=== PATIENT | female | born 1970 | race Caucasian/White ===

== ENCOUNTER 2021-06-30 14:53 | Emergency (ER) | payer SELFPAY ==
[2021-06-30 15:46] LABS: #Basophils 0.1 thou/uL (0.0-0.2); #Eosinphils 0.1 thou/uL (0.0-0.7); #Lymphocytes 3.4 thou/uL (1.20-3.40); #Monocytes 0.6 thou/uL (0.11-0.59); #Neutrophils 4.5 thou/uL (1.40-6.50); %Basophils 0.6 % (0.0-1.0); %Eosinophils 1.5 % (0.0-10.0); %Monocytes 7.2 % (0.0-10.0); %Neutrophils 51.7 % (42.0-75.0); Hemoglobin 15.1 g/dL (12.0-16.0); Mean Corpuscular HGB CONC 30.3 g/dL (32.0-36.0); Mean Corpuscular Hemoglobin 30.4 pg (27.0-31.0); Mean Platelet Volume 6.8 fL (7.4-10.4); Platelet Count 229 thou/uL (130-400); Red Blood Cell (RBC) Count 4.96 mill/uL (4.20-5.40); White Blood Cell (WBC) Count 8.7 thou/uL (4.8-10.8)
[2021-06-30 16:02] LABS: ALT (SGPT) 13 U/L (8-55); AST (SGOT) 12 U/L (5-34); Albumin 3.7 g/dL (3.5-5.0); Alkaline Phosphatase 72 U/L (40-110); Anion Gap 10 mmol/L (10-20); BUN (Urea Nitrogen) 8 mg/dL (9.8-20.1); Bilirubin, Total 0.3 mg/dL (0.2-1.2); Calc. Creatinine Clearance 0 mL/min (70-130); Carbon Dioxide 31 mmol/L (22-29); Chloride 109 mmol/L (98-107); Globulin 3.2 g/dL (2.4-3.5); Glucose 84 mg/dL (70-105); Potassium 4.4 mmol/L (3.5-5.1); Protein, Total 6.9 g/dL (6.0-8.3); Sodium 146 mmol/L (136-145)
== END 2021-06-30 17:11 | disposition home or self-care (01) ==
LOC: ERS 14:53
DX: J45.901 Unspecified asthma with (acute) exacerbation (principal); H66.91 Otitis media, unspecified, right ear; F17.210 Nicotine dependence, cigarettes, uncomplicated
CPT/HCPCS: 36415; 71045; 80053; 84484; 85025; 93005

== ENCOUNTER 2022-01-14 17:05 | Emergency (ER) | payer SELFPAY ==
[2022-01-14] MEDS ORDERED: HYDROcodone/Acetaminophen 5/325 mg Tablet ONE (18:42)
[2022-01-14] MEDS ORDERED: Ketorolac Tromethamine 30 MG/ML VIAL ONE (18:42)
[2022-01-14] MEDS ORDERED: predniSONE 20 MG TAB ONE (18:42)
== END 2022-01-14 19:00 | disposition home or self-care (01) ==
LOC: ERS 17:05
DX: M85.841 Other specified disorders of bone density and structure, right hand (principal)
CPT/HCPCS: 96372; J1885; J7512

== ENCOUNTER 2022-03-13 11:00 | Emergency (ER) | payer SELFPAY ==
[2022-03-13 11:33] LABS: #Eosinphils 0.1 thou/uL (0.0-0.7); #Lymphocytes 2.8 thou/uL (1.20-3.40); #Monocytes 0.8 thou/uL (0.11-0.59); #Neutrophils 5.2 thou/uL (1.40-6.50); %Basophils 0.3 % (0.0-1.0); %Eosinophils 1.1 % (0.0-10.0); %Lymphocytes 31.1 % (21.0-51.0); %Neutrophils 58.5 % (42.0-75.0); Hemoglobin 14.9 g/dL (12.0-16.0); Mean Corpuscular HGB CONC 30.4 g/dL (32.0-36.0); Mean Corpuscular Hemoglobin 31.7 pg (27.0-31.0); Mean Platelet Volume 6.8 fL (7.4-10.4); Platelet Count 218 thou/uL (130-400); RBC Distribution Width 12.5 % (11.5-14.5); Red Blood Cell (RBC) Count 4.68 mill/uL (4.20-5.40); White Blood Cell (WBC) Count 8.9 thou/uL (4.8-10.8)
[2022-03-13 11:51] LABS: ALT (SGPT) 48 U/L (8-55); AST (SGOT) 32 U/L (5-34); Albumin 3.7 g/dL (3.5-5.0); Alkaline Phosphatase 68 U/L (40-110); Anion Gap 9 mmol/L (10-20); BUN (Urea Nitrogen) 7 mg/dL (9.8-20.1); Bilirubin, Total 0.4 mg/dL (0.2-1.2); Calc. Creatinine Clearance 0 mL/min (70-130); Calcium 8.9 mg/dL (7.8-10.44); Carbon Dioxide 30 mmol/L (22-29); Chloride 111 mmol/L (98-107); Estimated GFR 107; Globulin 3.3 g/dL (2.4-3.5); Glucose 91 mg/dL (70-105); Potassium 4.1 mmol/L (3.5-5.1); Sodium 146 mmol/L (136-145)
[2022-03-13] MEDS ORDERED: Albuterol 200 PUFF (6.7GM INHALER) ONE (15:06)
[2022-03-13] MEDS ORDERED: predniSONE 20 MG TAB ONE (15:06)
[2022-03-13 15:36] LABS: SARS-CoV-2 NAA Rapid Test Not Detected (NotDetected)
== END 2022-03-13 15:24 | disposition home or self-care (01) ==
LOC: ERS 11:00
DX: B34.9 Viral infection, unspecified (principal); J44.9 Chronic obstructive pulmonary disease, unspecified; H92.09 Otalgia, unspecified ear; F17.210 Nicotine dependence, cigarettes, uncomplicated; Z20.822 Contact with and (suspected) exposure to COVID-19
CPT/HCPCS: 36415; 71045; 80053; 85025; 93005; J7512

== ENCOUNTER 2022-06-08 16:51 | Emergency (ER) | payer SELFPAY ==
[2022-06-08] MEDS ORDERED: Acetaminophen 500 MG TAB ONE (17:19)
== END 2022-06-08 18:15 | disposition home or self-care (01) ==
LOC: ERS 16:51
DX: S29.011A Strain of muscle and tendon of front wall of thorax, initial encounter (principal); R06.02 Shortness of breath; F17.290 Nicotine dependence, other tobacco product, uncomplicated; F17.210 Nicotine dependence, cigarettes, uncomplicated; X50.1XXA Overexertion from prolonged static or awkward postures, initial encounter
CPT/HCPCS: 71045

== ENCOUNTER 2023-05-21 17:25 | Inpatient (IN) | payer BC, SELFPAY ==
[~2023-05-21 17:25] MED LIST: Iopamidol-370 76% 500 ML MDV (1 ML CHARGE) ONE
[2023-05-21] MEDS ORDERED: Morphine 4 MG/ML VIAL ONE (17:54)
[2023-05-21 17:55] LABS: #Monocytes 0.7 thou/uL (0.11-0.59); #Neutrophils 8.5 thou/uL (1.40-6.50); %Basophils 0.3 % (0.0-1.0); %Eosinophils 0.1 % (0.0-10.0); %Lymphocytes 14.8 % (21.0-51.0); %Monocytes 6.4 % (0.0-10.0); %Neutrophils 77.9 % (42.0-75.0); Hematocrit 44.4 % (36.0-47.0); Hemoglobin 13.9 g/dL (12.0-16.0); Mean Corpuscular HGB CONC 31.3 g/dL (32.0-36.0); Mean Corpuscular Hemoglobin 30.5 pg (27.0-31.0); Mean Corpuscular Volume 97.6 fl (78.0-98.0); Mean Platelet Volume 9.1 fL (7.4-10.4); Platelet Count 193 10x3/uL (130-400); RBC Distribution Width 12.9 % (11.5-14.5); Red Blood Cell (RBC) Count 4.55 mill/uL (4.20-5.40); White Blood Cell (WBC) Count 10.9 10x3/uL (4.8-10.8)
[2023-05-21] MEDS ORDERED: Ondansetron PF 4 MG/2 ML Vial ONE ×2 (18:02→19:01)
[2023-05-21 18:10] LABS: PTT 34.9 sec (22.9-36.1); Prothrombin Time 13.5 sec (12.0-14.7)
[2023-05-21 18:21] LABS: ALT (SGPT) 13 U/L (8-55); AST (SGOT) 15 U/L (5-34); Alkaline Phosphatase 79 U/L (40-110); Anion Gap 10 mmol/L (10-20); BUN (Urea Nitrogen) 10 mg/dL (9.8-20.1); Bilirubin, Total 0.5 mg/dL (0.2-1.2); Calc. Creatinine Clearance 0 mL/min (70-130); Calcium 8.9 mg/dL (7.8-10.44); Carbon Dioxide 29 mmol/L (22-29); Chloride 108 mmol/L (98-107); Estimated GFR 98; Globulin 3.8 g/dL (2.4-3.5); Glucose 108 mg/dL (70-105); Potassium 4.2 mmol/L (3.5-5.1); Protein, Total 7.8 g/dL (6.0-8.3); Sodium 143 mmol/L (136-145)
[2023-05-21] MEDS ORDERED: HYDROcodone/Acetaminophen 5/325 mg Tablet ONE (19:14)
[2023-05-21] MEDS ORDERED: Senokot S 8.6-50 MG TAB PO PRN (22:58)
[2023-05-21] MEDS ORDERED: Acetaminophen 325 MG TAB PO PRN (22:58)
[2023-05-21] MEDS ORDERED: Ondansetron ODT 4 MG TAB PO PRN (22:58)
[2023-05-22 00:26] LABS: Cardiac Risk 3.2 (Less than 4.5)
[2023-05-22 02:15] VITALS: BMI 35.4
[2023-05-22 05:31] LABS: #Monocytes 0.8 thou/uL (0.11-0.59); #Neutrophils 5.2 thou/uL (1.40-6.50); %Basophils 0.3 % (0.0-1.0); %Eosinophils 0.4 % (0.0-10.0); Hematocrit 47.9 % (36.0-47.0); Hemoglobin 14.2 g/dL (12.0-16.0); Mean Corpuscular HGB CONC 29.6 g/dL (32.0-36.0); Mean Corpuscular Hemoglobin 29.7 pg (27.0-31.0); Mean Corpuscular Volume 100.2 fl (78.0-98.0); Platelet Count 171 10x3/uL (130-400); RBC Distribution Width 12.9 % (11.5-14.5); Red Blood Cell (RBC) Count 4.78 mill/uL (4.20-5.40); White Blood Cell (WBC) Count 7.7 10x3/uL (4.8-10.8)
[2023-05-22 05:57] LABS: ALT (SGPT) 193 U/L (8-55); AST (SGOT) 240 U/L (5-34); Albumin 3.6 g/dL (3.5-5.0); Alkaline Phosphatase 114 U/L (40-110); Anion Gap 11 mmol/L (10-20); BUN (Urea Nitrogen) 7 mg/dL (9.8-20.1); Bilirubin, Total 0.7 mg/dL (0.2-1.2); Calc. Creatinine Clearance 135 mL/min (70-130); Calcium 8.7 mg/dL (7.8-10.44); Carbon Dioxide 27 mmol/L (22-29); Chloride 109 mmol/L (98-107); Estimated GFR 103; Glucose 115 mg/dL (70-105); Potassium 3.9 mmol/L (3.5-5.1); Protein, Total 7.6 g/dL (6.0-8.3); Sodium 143 mmol/L (136-145)
[2023-05-22] MEDS ORDERED: Famotidine 20 MG TAB ONE (09:20)
[2023-05-22] MEDS: Famotidine 20 MG TAB PO SCH ×2 (09:26→20:31)
[2023-05-22] MEDS: Ipratropium/Albuterol 3 ML NEB NEB SCH ×3 (14:27→21:53)
[2023-05-22] MEDS: Ketorolac Tromethamine 30 MG (1 mL) VIAL IVP PRN (16:06)
[2023-05-22] MEDS ORDERED: Guaifenesin DM 100-10/5 ML UDCUP PO PRN (18:14)
[2023-05-23] MEDS: Ipratropium/Albuterol 3 ML NEB NEB SCH ×6 (02:27→22:02)
[2023-05-23] MEDS: Famotidine 20 MG TAB PO SCH ×2 (11:10→20:12)
[2023-05-23] MEDS: Ketorolac Tromethamine 30 MG (1 mL) VIAL IVP PRN ×2 (14:03→20:12)
[2023-05-24] MEDS: Ipratropium/Albuterol 3 ML NEB NEB SCH ×3 (02:10→10:50)
[2023-05-24] MEDS: Famotidine 20 MG TAB PO SCH (10:29)
[2023-05-24 12:56] VITALS: TEMP 96.5
[2023-05-24 12:57] VITALS: BP 114/57
[2023-05-24] MEDS: Ketorolac Tromethamine 30 MG (1 mL) VIAL IVP PRN (15:10)
[2023-05-24] MEDS ORDERED: Ipratropium/Albuterol 3 ML NEB NEB SCH (19:00)
== END 2023-05-24 16:06 | disposition home or self-care (01) | DRG 189 ==
LOC: ERS 17:25 → ERHOLD 23:28 → 2SW 05-22 12:16 → OBSVTOIN 05-22 15:07
PROVIDERS: ADMIT Student in an Organized Health Care Education/Training Program; ATTEND Student in an Organized Health Care Education/Training Program
DX: J96.01 Acute respiratory failure with hypoxia (principal); J18.9 Pneumonia, unspecified organism; S32.019A Unspecified fracture of first lumbar vertebra, initial encounter for closed fracture; J44.1 Chronic obstructive pulmonary disease with (acute) exacerbation; J44.0 Chronic obstructive pulmonary disease with (acute) lower respiratory infection; M81.0 Age-related osteoporosis without current pathological fracture; F43.10 Post-traumatic stress disorder, unspecified; F17.210 Nicotine dependence, cigarettes, uncomplicated; S83.92XA Sprain of unspecified site of left knee, initial encounter; I48.0 Paroxysmal atrial fibrillation; W19.XXXA Unspecified fall, initial encounter; Z90.49 Acquired absence of other specified parts of digestive tract; Z90.710 Acquired absence of both cervix and uterus; Z98.890 Other specified postprocedural states; Z88.5 Allergy status to narcotic agent; Z88.1 Allergy status to other antibiotic agents; Z91.09 Other allergy status, other than to drugs and biological substances; Z79.899 Other long term (current) drug therapy; Z88.0 Allergy status to penicillin; Z88.2 Allergy status to sulfonamides; Y92.008 Other place in unspecified non-institutional (private) residence as the place of occurrence of the external cause
CPT/HCPCS: 36415; 70450; 71045; 71275; 72131; 80053; 80061; 83880; 84145; 84443; 85025; 85610; 85730; 94640; 96374; 96375; 96376; J1885; J2270; J2405; J7620; Q9967

== ENCOUNTER 2024-01-31 11:38 | Outpatient (CLI) | payer OTHER | END 2024-01-31 11:39 | disposition home or self-care (01) | LOC: BICRAD 11:38 | PROVIDERS: ATTEND Internal Medicine | DX: Z02.71 Encounter for disability determination (principal); M43.8X6 Other specified deforming dorsopathies, lumbar region; M85.9 Disorder of bone density and structure, unspecified | CPT/HCPCS: 71046; 72100 ==

== ENCOUNTER 2024-05-05 11:06 | Observation (INO) | payer BC, OTHER ==
[2024-05-05] MEDS ORDERED: Magnesium 2 GM/50 ML BAG (IN WATER) ONE (11:37)
[2024-05-05] MEDS ORDERED: Ipratropium/Albuterol 3 ML NEB ONE (11:41)
[2024-05-05 11:50] LABS: #Basophils 0.06 10x3/uL (0.0-0.2); %Basophils 0.6 % (0.0-1.0); %Eosinophils 1.2 % (0.0-10.0); %Lymphocytes 33.3 % (21.0-51.0); %Monocytes 6.6 % (0.0-10.0); %Neutrophils 57.9 % (42.0-75.0); Hematocrit 46.8 % (36.0-47.0); Hemoglobin 14.8 g/dL (12.0-16.0); Mean Corpuscular HGB CONC 31.6 g/dL (32.0-36.0); Mean Corpuscular Hemoglobin 30.3 pg (27.0-31.0); Mean Corpuscular Volume 95.9 fL (78.0-98.0); Mean Platelet Volume 9.1 fL (7.4-10.4); Platelet Count 224 10x3/uL (130-400); RBC Distribution Width 13.8 % (11.5-14.5); Red Blood Cell (RBC) Count 4.88 mill/uL (4.20-5.40)
[2024-05-05] MEDS ORDERED: methylPREDNISolone Sod Succ/PF 125 MG/2 ML VIAL ONE (11:53)
[2024-05-05 12:08] LABS: ALT (SGPT) 11 U/L (8-55); AST (SGOT) 15 U/L (5-34); Albumin 3.6 g/dL (3.5-5.0); Alkaline Phosphatase 59 U/L (40-110); Anion Gap 13 mmol/L (10-20); BUN (Urea Nitrogen) 9 mg/dL (9.8-20.1); Bilirubin, Total 0.2 mg/dL (0.2-1.2); Calc. Creatinine Clearance 0 mL/min (70-130); Calcium 8.8 mg/dL (7.8-10.44); Carbon Dioxide 29 mmol/L (22-29); Chloride 109 mmol/L (98-107); Estimated GFR 100; Globulin 3.9 g/dL (2.4-3.5); Glucose 100 mg/dL (70-105); Potassium 4.4 mmol/L (3.5-5.1); Protein, Total 7.5 g/dL (6.0-8.3); Sodium 147 mmol/L (136-145)
[2024-05-05 12:12] LABS: Troponin I Less than 0.010 ng/mL (< 0.028)
[2024-05-05] MEDS ORDERED: Ipratropium/Albuterol 3 ML NEB NEB PRN (14:12)
[2024-05-05] MEDS ORDERED: traMADol HCl 50 MG TAB PO PRN (15:00)
[2024-05-05 16:17] VITALS: BMI 34.5
[2024-05-05] MEDS: Nicotine 14 MG PATCH TD SCH (16:53)
[2024-05-05 17:30] LABS: Influenza A by NAA Not Detected (NotDetected); Influenza B by NAA Not Detected (NotDetected); SARS-CoV-2 NAA Rapid Test Not Detected (NotDetected)
[2024-05-05] MEDS: Ipratropium/Albuterol 3 ML NEB NEB SCH (17:50)
[2024-05-05] MEDS: Mometasone 100 MCG/Formoterol 5 MCG 120 PUFF INHALER INH SCH (19:21)
[2024-05-05] MEDS: Gabapentin 100 MG CAP PO SCH (21:24)
[2024-05-05] MEDS: risperiDONE 1 MG TAB PO SCH (21:26)
[2024-05-05] MEDS: traZODone HCl 50 MG TAB PO SCH (21:26)
[2024-05-05] MEDS: Prazosin HCl 1 MG CAP PO SCH (21:27)
[2024-05-05] MEDS: Venlafaxine HCl 37.5 MG TAB PO SCH (21:27)
[2024-05-06 05:49] LABS: #Basophils Less than 0.03 10x3/uL (0.0-0.2); #Eosinophils Less than 0.03 10x3/uL (0.0-0.7); %Basophils 0.2 % (0.0-1.0); %Lymphocytes 19.1 % (21.0-51.0); %Monocytes 6.2 % (0.0-10.0); %Neutrophils 74.1 % (42.0-75.0); Hematocrit 47.8 % (36.0-47.0); Hemoglobin 14.4 g/dL (12.0-16.0); Mean Corpuscular HGB CONC 30.1 g/dL (32.0-36.0); Mean Corpuscular Hemoglobin 29.6 pg (27.0-31.0); Mean Corpuscular Volume 98.4 fL (78.0-98.0); Platelet Count 217 10x3/uL (130-400); RBC Distribution Width 13.7 % (11.5-14.5); Red Blood Cell (RBC) Count 4.86 mill/uL (4.20-5.40)
[2024-05-06 06:14] LABS: ALT (SGPT) 9 U/L (8-55); AST (SGOT) 8 U/L (5-34); Albumin 3.2 g/dL (3.5-5.0); Alkaline Phosphatase 59 U/L (40-110); Anion Gap 10 mmol/L (10-20); BUN (Urea Nitrogen) 11 mg/dL (9.8-20.1); Bilirubin, Total 0.2 mg/dL (0.2-1.2); Calc. Creatinine Clearance 134 mL/min (70-130); Calcium 8.6 mg/dL (7.8-10.44); Carbon Dioxide 31 mmol/L (22-29); Chloride 111 mmol/L (98-107); Estimated GFR 104; Globulin 3.8 g/dL (2.4-3.5); Glucose 101 mg/dL (70-105); Sodium 148 mmol/L (136-145)
[2024-05-06] MEDS: Venlafaxine 75 MG TAB PO SCH (10:00)
[2024-05-06] MEDS: Furosemide 20 MG TAB PO SCH (10:01)
[2024-05-06] MEDS: predniSONE 20 MG TAB PO SCH (10:02)
[2024-05-06] MEDS: Furosemide 20 MG (2 mL) VIAL SLOW IVP SCH (11:00)
[2024-05-06] MEDS ORDERED: Benzonatate 100 MG CAP PO PRN (11:45)
[2024-05-06] MEDS: Benzonatate 100 MG CAP PO SCH (13:21)
[2024-05-06 14:14] VITALS: BP 99/64; TEMP 97.8
[2024-05-06] MEDS ORDERED: Rivaroxaban 10 MG TAB PO SCH ×2 (17:00→21:00)
[2024-05-06] MEDS ORDERED: guaiFENesin ER 600 MG TAB PO SCH (21:00)
[2024-05-07] MEDS ORDERED: predniSONE 20 MG TAB PO SCH (08:00)
== END 2024-05-06 16:35 | disposition home or self-care (01) ==
LOC: ERS 11:06 → T4-B 16:13
PROVIDERS: ADMIT Student in an Organized Health Care Education/Training Program; ATTEND Student in an Organized Health Care Education/Training Program
DX: J96.01 Acute respiratory failure with hypoxia (principal); J44.1 Chronic obstructive pulmonary disease with (acute) exacerbation; I50.30 Unspecified diastolic (congestive) heart failure; I48.0 Paroxysmal atrial fibrillation; E03.9 Hypothyroidism, unspecified; F41.9 Anxiety disorder, unspecified; F17.290 Nicotine dependence, other tobacco product, uncomplicated; Z90.710 Acquired absence of both cervix and uterus; Z90.49 Acquired absence of other specified parts of digestive tract; Z99.81 Dependence on supplemental oxygen; Z88.8 Allergy status to other drugs, medicaments and biological substances; Z88.1 Allergy status to other antibiotic agents; Z88.5 Allergy status to narcotic agent; Z88.2 Allergy status to sulfonamides; Z79.51 Long term (current) use of inhaled steroids; Z79.01 Long term (current) use of anticoagulants; Z79.899 Other long term (current) drug therapy
CPT/HCPCS: 36415; 71045; 80053; 83880; 84484; 85025; 93005; 94640; 96365; 96375; G0378; J1940; J2919; J3475; J7512; J7620

== ENCOUNTER 2025-05-01 02:04 | Emergency (ER) | payer OTHER ==
[2025-05-01] MEDS ORDERED: Ketorolac Tromethamine 30 MG (1 mL) VIAL ONE (04:32)
== END 2025-05-01 05:52 | disposition home or self-care (01) ==
LOC: ERS 02:04
DX: J44.9 Chronic obstructive pulmonary disease, unspecified (principal); H92.01 Otalgia, right ear; Z76.0 Encounter for issue of repeat prescription; F17.210 Nicotine dependence, cigarettes, uncomplicated; F17.290 Nicotine dependence, other tobacco product, uncomplicated; Z79.51 Long term (current) use of inhaled steroids
CPT/HCPCS: 71045; 87428; 96372; 99285; J1885